=== PATIENT | female | born 1975 | race Caucasian/White ===

== ENCOUNTER → 2017-01-25 | Outpatient (CLI) | payer BC ==
[~2017-01-25] MED LIST: ACET-1256 PO; IBUP-1050 PO; PRENTAB26 PO
== END | disposition home or self-care (01) ==
LOC: C.PAPS 13:49
PROVIDERS: ATTEND Obstetrics & Gynecology
DX: Z01.419 Encounter for gynecological examination (general) (routine) without abnormal findings (principal)

== ENCOUNTER → 2017-01-25 | Outpatient (CLI) | payer BC ==
[2017-01-25 14:18] LABS: URINE APPEARANCE CLEAR (CLEAR); URINE BILIRUBIN NEG (NEG); URINE COLOR YELLOW; URINE NITRITE NEG (NEG); URINE PH 7.5 (4.5-7.5); URINE SPECIFIC GRAVITY 1.019 (1.000-1.030); UROBILINOGEN NEG (NEG); ZZUR CULT IF INDIC CLEAN CATCH NO
[2017-01-25 14:27] LABS: MANUAL MICROSCOPIC REQUIRED? NO; REVIEW REQ? NO
== END | disposition home or self-care (01) ==
LOC: C.LABSPEC 13:27
PROVIDERS: ATTEND Obstetrics & Gynecology
DX: R31.9 Hematuria, unspecified (principal)

== ENCOUNTER → 2017-02-12 | Outpatient (CLI) | payer BC ==
[2017-02-12 13:31] LABS: URINE APPEARANCE CLEAR (CLEAR); URINE BILIRUBIN NEG (NEG); URINE COLOR YELLOW; URINE EPITHELIAL CELL AUTO 20-30 /lpf (0-5); URINE NITRITE NEG (NEG); URINE PH 5.5 (4.5-7.5); URINE SPECIFIC GRAVITY 1.019 (1.000-1.030); UROBILINOGEN NEG (NEG); ZZUR CULT IF INDIC CLEAN CATCH NO
[2017-02-12 13:34] LABS: MANUAL MICROSCOPIC REQUIRED? NO; REVIEW REQ? NO
== END | disposition home or self-care (01) ==
LOC: C.LAB1850 10:04
PROVIDERS: ATTEND Obstetrics & Gynecology
DX: R31.9 Hematuria, unspecified (principal)

== ENCOUNTER → 2017-04-09 | Outpatient (CLI) | payer BC | END | disposition home or self-care (01) | LOC: C.PATHSPEC 17:14 | PROVIDERS: ATTEND Urology | DX: R31.9 Hematuria, unspecified (principal); R82.99 Other abnormal findings in urine ==

== ENCOUNTER → 2017-04-12 | Outpatient (CLI) | payer BC ==
--- NOTE | 2017-04-12 08:57 | DIAGNOSTIC IMAGING REPORT ---
ULTRASOUND KIDNEYS AND BLADDER CLINICAL HISTORY: Hematuria. COMPARISON STUDY: Abdominal CT dated 08/02/2008. TECHNIQUE: Real-time, grayscale, and color flow sonography of the kidneys and bladder is performed. Images are reviewed in the transverse and longitudinal planes. FINDINGS: Kidneys: The kidneys are normal in size and echotexture. The right kidney measures 11.4 cm in length and the left kidney measures 10.8 cm in length. There is mild fullness of the renal collecting system bilaterally without hydronephrosis. No shadowing renal calculi are identified. There is no sonographic evidence of contour deforming renal mass lesion. No perinephric fluid is identified. Bladder: The bladder is normal in appearance. Bilateral ureteral jets were seen. IMPRESSION: 1. The kidneys are normal in size and without hydronephrosis. 2. The bladder is normal as visualized. Electronically signed by: Zay Doshi M.D. 04/12/2017 8:55 AM Dictated Date/Time: 04/12/2017 8:54 AM
--- NOTE | 2017-04-12 09:00 | DIAGNOSTIC IMAGING REPORT ---
KUB CLINICAL HISTORY: Hematuria. FINDINGS: 2 AP supine abdominal radiographs are correlated with abdominal CT dated 08/02/2008. There is a nonobstructed abdominal bowel gas pattern. There is no radiographic evidence of nephrolithiasis. The bony structures appear intact. IMPRESSION: There is no radiographic evidence of nephrolithiasis. Electronically signed by: Zay Doshi M.D. 04/12/2017 8:58 AM Dictated Date/Time: 04/12/2017 8:58 AM
== END | disposition home or self-care (01) ==
LOC: C.ULTR 07:55
PROVIDERS: ATTEND Urology
DX: R31.9 Hematuria, unspecified (principal)